=== PATIENT | male | born 1960 | race Caucasian/White ===

== ENCOUNTER 2017-04-03 16:51 | Inpatient (IN) | payer BC ==
[~2017-04-03] VITALS: Ht 190.5 cm; Wt 104.0 kg
[~2017-04-03 16:51] MED LIST: AEROSPAN8.9 GM IH; AMITRIPTYLINE100 MG PO; DAILY VITE1 EAC1 PO; ELAVIL10 MG PO; FISH OIL 1,2001 EAC4 PO; IRON18 MG PO; IRON325 M1 PO; MIRALAX17 GM PO; PERCOCET 5/31 TABLET PO; PRILOSEC OTC20 MG PO; PRILOSEC20 MG PO; PURELAX510 GM PO; SINGULAIR10 MG PO; SLO-NIACIN500 MG PO; STOOL SOFTENER100 M1 PO; TESSALON PERLE100 MG PO; TESSALON200 MG PO; TYLENOL PM1 CAPLET PO; ULTRAM50 MG PO; VENTOLIN HFA18 GM IH; VITAMIN D-3 401 EACH PO; VITAMIN E100 UNIT PO
[2017-04-03 19:28] LABS: HEMATOCRIT 43.1 % (38.0-50.0); MCH 33.4 PG (29.0-34.0); MCHC 35.5 G/DL (30.0-36.0); MCV 94.1 FL (86-99); MEAN PLAT.VOLUME 9.5 uM^3 (9.0-12.4); PLATELET COUNT 109 K/uL (156-360); RBC DIS.WIDTH-CV 15.4 % (11.8-14.6); RED BLOOD COUNT 4.58 M/uL (4.00-5.50); WHITE BLOOD COUNT 7.4 K/uL (4.1-10.2)
[2017-04-03 19:30] LABS: CHLORIDE 99 mEq/L (99-109); EOSINOPHIL (%) 0.4 % (0-5); IMMATURE GRANULOCYTE (%) 0.7 % (0.0-0.7); IMMATURE GRANULOCYTE COUNT 0.1 K/uL; INSTRUMENT ABS NEUTROPHIL CT 6.3 K/uL; LYMPHOCYTE COUNT 0.3 K/uL (1.0-2.8); MONOCYTE (%) 10.4 % (3-12); MONOCYTE COUNT 0.8 K/uL (0-0.8); NEUTROPHIL (%) 84.4 % (45-76); NEUTROPHIL COUNT 6.3 K/uL (1.8-6.4); POTASSIUM 4.3 mEq/L (3.7-5.4); SODIUM 135 mEq/L (136-147)
[2017-04-03 19:32] LABS: GLUCOSE 124 mg/dL (70-99)
[2017-04-03 19:34] LABS: ANION GAP 12 MEQ/L (2-14); TOTAL BILIRUBIN 1.3 mg/dL (0.0-1.0)
[2017-04-03 19:36] LABS: ALKALINE PHOSPHATASE 84 IU/L (3-129); GFR ESTIMATE (CALCULATED) > 59 mL/min/
[2017-04-03 19:37] LABS: UREA NITROGEN (BUN) 11 mg/dL (9-23)
[2017-04-03 20:45] LABS: ADD MIUA? NO; BILIRUBIN NEGATIVE; BLOOD NEGATIVE; COLOR YELLOW ((YELLOW)); GLUCOSE (STRIP) NEGATIVE; KETONES 5; LEUKOCYTES NEGATIVE; NITRITE NEGATIVE; PROTEIN (STRIP) NEGATIVE; SPECIFIC GRAVITY 1.016 (1.000-1.030); UCUL ADDED? NO; UROBILINOGEN 0.2 MG/DL (0.2-1.0)
[2017-04-03] MEDS ORDERED: CYANOCOBALAM1000 MCG PO (22:25)
[2017-04-03] MEDS ORDERED: CALCIUM 600 MG1 EACH PO (22:26)
[2017-04-03] MEDS ORDERED: DOCUSATE SODIU100 MG PO (22:26)
[2017-04-03] MEDS ORDERED: AMBIEN5 MG PO (22:27)
[2017-04-03] MEDS ORDERED: LISINOPRIL10 MG PO (22:28)
[2017-04-03] MEDS ORDERED: ZOFRAN4 MG PO (22:28)
[2017-04-03] MEDS ORDERED: PROTONIX40 MG PO (22:28)
[2017-04-03] MEDS ORDERED: MAALOX ADVANCE355 ML PO (22:31)
[2017-04-03] MEDS ORDERED: CAPECITABINE500 MG PO (22:32)
[2017-04-03] MEDS ORDERED: SUCRALFATE1 GM PO (22:32)
[2017-04-03] MEDS ORDERED: FLUCONAZOLE200 MG PO (22:33)
[2017-04-04 02:17] VITALS: BP 161/90
[2017-04-04 07:08] VITALS: BP 116/77
[2017-04-04 11:13] VITALS: BP 136/88
[2017-04-04 14:56] VITALS: BP 140/97
[2017-04-04 15:52] LABS: C DIFF TOXIN NEGATIVE (NEGATIVE)
[2017-04-04 15:55] LABS: PROBE CHECK PASS; SPECIMEN PROCESSING CONTROL PASS
[2017-04-04 19:21] VITALS: BP 130/90
[2017-04-05 00:25] VITALS: BP 139/87
[2017-04-05 03:45] VITALS: BP 128/87
[2017-04-05 07:11] VITALS: BP 110/66
[2017-04-05 07:46] LABS: ANION GAP 6 MEQ/L (2-14); CHLORIDE 104 MEQ/L (99-109); GFR ESTIMATE (CALCULATED) > 59 mL/min/; POTASSIUM 4.3 MEQ/L (3.7-5.4); SAMPLE HEMOLYSIS CHECK 0; SAMPLE ICTERIC CHECK 0; SAMPLE LIPEMIA CHECK 0; SODIUM 137 MEQ/L (136-147); UREA NITROGEN (BUN) 12 mg/dL (9-23)
[2017-04-05 07:50] LABS: GLUCOSE 89 mg/dL (70-99)
[2017-04-05 07:55] LABS: EOSINOPHIL (%) 1.6 % (0-5); EOSINOPHIL COUNT 0.1 K/uL (0-0.3); HEMATOCRIT 33.5 % (38.0-50.0); IMMATURE GRANULOCYTE (%) 0.3 % (0.0-0.7); INSTRUMENT ABS NEUTROPHIL CT 2.2 K/uL; LYMPHOCYTE COUNT 0.4 K/uL (1.0-2.8); MCH 33.4 PG (29.0-34.0); MCHC 34.6 G/DL (30.0-36.0); MCV 96.5 FL (86-99); MONOCYTE (%) 16.5 % (3-12); MONOCYTE COUNT 0.5 K/uL (0-0.8); NEUTROPHIL (%) 69.3 % (45-76); NEUTROPHIL COUNT 2.2 K/uL (1.8-6.4); RBC DIS.WIDTH-CV 15.2 % (11.8-14.6); RBC DIS.WIDTH-SD 53.2 % (39-53)
[2017-04-05 07:59] LABS: RED BLOOD COUNT 3.47 M/uL (4.00-5.50); WHITE BLOOD COUNT 3.2 K/uL (4.1-10.2)
[2017-04-05 08:31] LABS: MEAN PLAT.VOLUME 9.7 uM^3 (9.0-12.4); PLAT.SUFFICIENCY DECREASED
[2017-04-05 09:07] LABS: PLATELET COUNT 66 K/uL (156-360)
[2017-04-05 11:20] VITALS: BP 122/77
[2017-04-05 15:30] VITALS: BP 151/94
[2017-04-05 19:45] VITALS: BP 140/92
[2017-04-06 03:57] VITALS: BP 149/88
[2017-04-06 07:36] VITALS: BP 158/101
[2017-04-06 10:32] LABS: EOSINOPHIL (%) 1.6 % (0-5); EOSINOPHIL COUNT 0.1 K/uL (0-0.3); HEMATOCRIT 33.5 % (38.0-50.0); IMMATURE GRANULOCYTE (%) 1.1 % (0.0-0.7); INSTRUMENT ABS NEUTROPHIL CT 2.8 K/uL; LYMPHOCYTE COUNT 0.4 K/uL (1.0-2.8); MCH 34.7 PG (29.0-34.0); MCHC 35.8 G/DL (30.0-36.0); MCV 96.8 FL (86-99); MEAN PLAT.VOLUME 9.7 uM^3 (9.0-12.4); MONOCYTE (%) 13.2 % (3-12); MONOCYTE COUNT 0.5 K/uL (0-0.8); NEUTROPHIL (%) 74.4 % (45-76); NEUTROPHIL COUNT 2.8 K/uL (1.8-6.4); PLATELET COUNT 72 K/uL (156-360); RBC DIS.WIDTH-CV 15.4 % (11.8-14.6); RBC DIS.WIDTH-SD 54.1 % (39-53); RED BLOOD COUNT 3.46 M/uL (4.00-5.50); WHITE BLOOD COUNT 3.8 K/uL (4.1-10.2)
[2017-04-06 10:52] LABS: ALKALINE PHOSPHATASE 73 IU/L (3-129); ANION GAP 8 MEQ/L (2-14); CHLORIDE 103 MEQ/L (99-109); GFR ESTIMATE (CALCULATED) > 59 mL/min/; GLUCOSE 128 mg/dL (70-99); POTASSIUM 4.2 MEQ/L (3.7-5.4); SAMPLE HEMOLYSIS CHECK 0; SAMPLE ICTERIC CHECK 0; SAMPLE LIPEMIA CHECK 0; SODIUM 137 MEQ/L (136-147); TOTAL BILIRUBIN 0.6 MG/DL (0.0-1.0); UREA NITROGEN (BUN) 9 mg/dL (9-23)
[2017-04-06 11:26] LABS: Estimated Average Glucose 97 mg/dL (70-123)
[2017-04-06 12:00] VITALS: BP 142/94
[2017-04-06 15:25] VITALS: BP 128/75
[2017-04-06 19:31] VITALS: BP 155/92
[2017-04-06 23:11] VITALS: BP 151/87
[2017-04-07 03:46] VITALS: BP 143/89
[2017-04-07 07:03] VITALS: BP 129/81
[2017-04-07 11:47] VITALS: BP 141/91
[2017-04-07 15:06] VITALS: BP 137/79
[2017-04-07 22:23] VITALS: BP 154/89
[2017-04-08 10:05] VITALS: BP 143/92
[2017-04-08 22:16] VITALS: BP 138/98
[2017-04-09 07:33] VITALS: BP 147/85
[2017-04-09 12:30] VITALS: BP 154/96
[2017-04-09 15:43] VITALS: BP 158/92
[2017-04-09 22:27] VITALS: BP 148/98
[2017-04-10 07:30] VITALS: BP 133/86
[2017-04-10] MEDS ORDERED: PRINIVIL20 MG PO ×2 (14:01→14:08)
[2017-04-10] MEDS ORDERED: CORTENEMA PR (14:03)
[2017-04-10] MEDS ORDERED: TORADOL10 MG PO (14:06)
[2017-04-10] MEDS ORDERED: FENTANYL1 EAC1 TD (14:06)
== END 2017-04-10 14:56 | disposition home or self-care (01) | DRG 389 ==
LOC: EME 16:51 → EDOF 04-04 00:30 → 5EAST 04-04 00:30
PROVIDERS: Family Medicine; Hospitalist; Physician Assistant
DX: K56.60 Unspecified intestinal obstruction (principal); K52.9 Noninfective gastroenteritis and colitis, unspecified; C18.9 Malignant neoplasm of colon, unspecified; C78.7 Secondary malignant neoplasm of liver and intrahepatic bile duct; D69.59 Other secondary thrombocytopenia; T45.1X5A Adverse effect of antineoplastic and immunosuppressive drugs, initial encounter; Z87.891 Personal history of nicotine dependence; I10 Essential (primary) hypertension
CPT/HCPCS: 74000; 74177; 80048; 80053; 81003; 83036; 83690; 85025; 85027; 87493; G0378; J0744; J1650; J1885; J2270; J2405; J2765; J3010; J7030; S0028; S0030

== ENCOUNTER 2017-06-17 06:21 | Inpatient (IN) | payer BC ==
[~2017-06-17] VITALS: Ht 190.5 cm; Wt 101.6 kg
[~2017-06-17 06:21] MED LIST changes: +AMBIEN5 MG PO; +CALCIUM 600 MG1 EACH PO; +CAPECITABINE500 MG PO; +CORTENEMA PR; +CYANOCOBALAM1000 MCG PO; +DOCUSATE SODIU100 MG PO; +FENTANYL1 EAC1 TD; +FLUCONAZOLE200 MG PO; +LISINOPRIL10 MG PO; +MAALOX ADVANCE355 ML PO; +PRINIVIL20 MG PO; +PROTONIX40 MG PO; +SUCRALFATE1 GM PO; +TORADOL10 MG PO; +ZOFRAN4 MG PO
[2017-06-17 07:27] LABS: HEMATOCRIT 41.9 % (38.0-50.0); MCH 31.9 PG (29.0-34.0); MCHC 33.9 G/DL (30.0-36.0); MCV 94.2 FL (86-99); MEAN PLAT.VOLUME 9.9 uM^3 (9.0-12.4); PLATELET COUNT 79 K/uL (156-360); RBC DIS.WIDTH-CV 14.9 % (11.8-14.6); RBC DIS.WIDTH-SD 51.3 % (39-53); RED BLOOD COUNT 4.45 M/uL (4.00-5.50); WHITE BLOOD COUNT 4.3 K/uL (4.1-10.2)
[2017-06-17 07:53] LABS: ALKALINE PHOSPHATASE 143 IU/L (3-129); ANION GAP 7 MEQ/L (2-14); CHLORIDE 102 MEQ/L (99-109); GFR ESTIMATE (CALCULATED) > 59 mL/min/; GLUCOSE 159 mg/dL (70-99); POTASSIUM 3.9 MEQ/L (3.7-5.4); SAMPLE HEMOLYSIS CHECK 0; SAMPLE ICTERIC CHECK 0; SAMPLE LIPEMIA CHECK 0; SODIUM 135 MEQ/L (136-147); TOTAL BILIRUBIN 1.5 MG/DL (0.0-1.0); UREA NITROGEN (BUN) 11 mg/dL (9-23)
[2017-06-17 10:36] LABS: ADD MIUA? NO; BILIRUBIN NEGATIVE; BLOOD NEGATIVE; COLOR YELLOW ((YELLOW)); GLUCOSE (STRIP) NEGATIVE; KETONES 20; LEUKOCYTES NEGATIVE; NITRITE NEGATIVE; PROTEIN (STRIP) NEGATIVE; UCUL ADDED? NO; UROBILINOGEN 0.2 MG/DL (0.2-1.0)
[2017-06-17 10:52] LABS: SPECIFIC GRAVITY 1.097 (1.000-1.030)
[2017-06-17] MEDS ORDERED: COMPAZINE10 MG PO (13:10)
[2017-06-17 13:12] VITALS: BP 174/108
[2017-06-17] MEDS ORDERED: CALCIUM-MAGNES1 EAC8 PO (13:12)
[2017-06-17] MEDS ORDERED: CARAFATE100 MG/ML PO (13:15)
[2017-06-17] MEDS ORDERED: DURAGESIC50 MCG TD (13:17)
[2017-06-17 13:18] LABS: LIPASE 8 U/L (1.0-51.0)
[2017-06-17] MEDS ORDERED: ZESTRIL40 MG PO (13:18)
[2017-06-17] MEDS ORDERED: BENTYL20 MG PO (13:19)
[2017-06-17] MEDS ORDERED: DULCOLAX5 MG PO (13:19)
[2017-06-17] MEDS ORDERED: REMERON15 M2 PO (13:19)
[2017-06-17] MEDS ORDERED: AVASTIN400 MG/16 IV (13:20)
[2017-06-17 16:09] VITALS: BP 145/83
[2017-06-18] VITALS (7 sets, daily range): BP systolic 109–139; BP diastolic 72–93
[2017-06-18 06:22] LABS: EOSINOPHIL (%) 0.1 % (0-5); HEMATOCRIT 38.3 % (38.0-50.0); IMMATURE GRANULOCYTE (%) 0.6 % (0.0-0.7); INSTRUMENT ABS NEUTROPHIL CT 6.1 K/uL; LYMPHOCYTE COUNT 0.4 K/uL (1.0-2.8); MCH 32.8 PG (29.0-34.0); MCHC 34.7 G/DL (30.0-36.0); MCV 94.3 FL (86-99); MEAN PLAT.VOLUME 10.5 uM^3 (9.0-12.4); MONOCYTE (%) 8.1 % (3-12); MONOCYTE COUNT 0.6 K/uL (0-0.8); NEUTROPHIL (%) 85.3 % (45-76); NEUTROPHIL COUNT 6.1 K/uL (1.8-6.4); PLATELET COUNT 99 K/uL (156-360); RBC DIS.WIDTH-CV 15.3 % (11.8-14.6); RBC DIS.WIDTH-SD 52.8 % (39-53); RED BLOOD COUNT 4.06 M/uL (4.00-5.50); WHITE BLOOD COUNT 7.1 K/uL (4.1-10.2)
[2017-06-18 06:46] LABS: ALKALINE PHOSPHATASE 111 IU/L (3-129); ANION GAP 5 MEQ/L (2-14); CHLORIDE 105 MEQ/L (99-109); GFR ESTIMATE (CALCULATED) > 59 mL/min/; GLUCOSE 137 mg/dL (70-99); POTASSIUM 3.9 MEQ/L (3.7-5.4); SAMPLE HEMOLYSIS CHECK 0; SAMPLE ICTERIC CHECK 0; SAMPLE LIPEMIA CHECK 0; SODIUM 139 MEQ/L (136-147); UREA NITROGEN (BUN) 11 mg/dL (9-23)
[2017-06-18 06:47] LABS: TOTAL BILIRUBIN 1.1 MG/DL (0.0-1.0)
[2017-06-19 02:35] VITALS: BP 108/72
[2017-06-19 07:21] LABS: HEMATOCRIT 34.6 % (38.0-50.0); INSTRUMENT ABS NEUTROPHIL CT 1.2 K/uL; LYMPHOCYTE COUNT 0.5 K/uL (1.0-2.8); MCH 31.8 PG (29.0-34.0); MCHC 32.9 G/DL (30.0-36.0); MCV 96.4 FL (86-99); MONOCYTE (%) 11.1 % (3-12); MONOCYTE COUNT 0.2 K/uL (0-0.8); NEUTROPHIL (%) 61.8 % (45-76); NEUTROPHIL COUNT 1.2 K/uL (1.8-6.4); RBC DIS.WIDTH-CV 15.1 % (11.8-14.6); RED BLOOD COUNT 3.59 M/uL (4.00-5.50)
[2017-06-19 07:44] VITALS: BP 108/68
[2017-06-19 08:23] LABS: MEAN PLAT.VOLUME 9.7 uM^3 (9.0-12.4); PLAT.SUFFICIENCY DECREASED; PLATELET COUNT 55 K/uL (156-360)
[2017-06-19 08:26] LABS: ANION GAP 8 MEQ/L (2-14); CHLORIDE 104 MEQ/L (99-109); GFR ESTIMATE (CALCULATED) > 59 mL/min/; GLUCOSE 83 mg/dL (70-99); POTASSIUM 4.2 MEQ/L (3.7-5.4); SAMPLE HEMOLYSIS CHECK 0; SAMPLE ICTERIC CHECK 0; SAMPLE LIPEMIA CHECK 0; SODIUM 139 MEQ/L (136-147); UREA NITROGEN (BUN) 12 mg/dL (9-23)
[2017-06-19 12:42] VITALS: BP 127/82
[2017-06-19 20:05] VITALS: BP 139/80
[2017-06-19 23:55] VITALS: BP 124/78
[2017-06-20 03:25] VITALS: BP 120/80
[2017-06-20 07:25] VITALS: BP 125/78
[2017-06-20 16:18] VITALS: BP 131/83
[2017-06-21 02:44] VITALS: BP 118/66
[2017-06-21 03:40] VITALS: BP 128/75
[2017-06-21 07:12] LABS: EOSINOPHIL (%) 1.6 % (0-5); HEMATOCRIT 34.4 % (38.0-50.0); IMMATURE GRANULOCYTE (%) 0.8 % (0.0-0.7); INSTRUMENT ABS NEUTROPHIL CT 1.7 K/uL; LYMPHOCYTE COUNT 0.4 K/uL (1.0-2.8); MCH 32.7 PG (29.0-34.0); MCHC 34.6 G/DL (30.0-36.0); MCV 94.5 FL (86-99); MEAN PLAT.VOLUME 10.6 uM^3 (9.0-12.4); MONOCYTE (%) 12.7 % (3-12); MONOCYTE COUNT 0.3 K/uL (0-0.8); NEUTROPHIL (%) 68.5 % (45-76); NEUTROPHIL COUNT 1.7 K/uL (1.8-6.4); PLATELET COUNT 57 K/uL (156-360); RBC DIS.WIDTH-CV 15.4 % (11.8-14.6); RBC DIS.WIDTH-SD 52.5 % (39-53); RED BLOOD COUNT 3.64 M/uL (4.00-5.50); WHITE BLOOD COUNT 2.4 K/uL (4.1-10.2)
[2017-06-21 07:36] LABS: ANION GAP 7 MEQ/L (2-14); CHLORIDE 105 MEQ/L (99-109); GFR ESTIMATE (CALCULATED) > 59 mL/min/; GLUCOSE 88 mg/dL (70-99); POTASSIUM 4.8 MEQ/L (3.7-5.4); SAMPLE HEMOLYSIS CHECK 0; SAMPLE ICTERIC CHECK 0; SAMPLE LIPEMIA CHECK 0; SODIUM 142 MEQ/L (136-147); UREA NITROGEN (BUN) 6 mg/dL (9-23)
[2017-06-21 07:46] VITALS: BP 119/75
[2017-06-21 11:23] VITALS: BP 129/84
[2017-06-21 16:18] VITALS: BP 126/79
[2017-06-21 20:51] VITALS: BP 132/81
[2017-06-22 00:09] VITALS: BP 141/73
[2017-06-22 06:38] LABS: EOSINOPHIL (%) 0.6 % (0-5); EOSINOPHIL COUNT 0.1 K/uL (0-0.3); HEMATOCRIT 39.8 % (38.0-50.0); IMMATURE GRANULOCYTE (%) 3.9 % (0.0-0.7); IMMATURE GRANULOCYTE COUNT 0.8 K/uL; INSTRUMENT ABS NEUTROPHIL CT 17.1 K/uL; LYMPHOCYTE COUNT 0.7 K/uL (1.0-2.8); MCH 32.6 PG (29.0-34.0); MCHC 34.7 G/DL (30.0-36.0); MCV 94.1 FL (86-99); MEAN PLAT.VOLUME 9.8 uM^3 (9.0-12.4); MONOCYTE (%) 4.7 % (3-12); MONOCYTE COUNT 0.9 K/uL (0-0.8); NEUTROPHIL (%) 87.3 % (45-76); NEUTROPHIL COUNT 17.1 K/uL (1.8-6.4); PLATELET COUNT 72 K/uL (156-360); RBC DIS.WIDTH-CV 15.8 % (11.8-14.6); RBC DIS.WIDTH-SD 53.9 % (39-53); RED BLOOD COUNT 4.23 M/uL (4.00-5.50); WHITE BLOOD COUNT 19.6 K/uL (4.1-10.2)
[2017-06-22 07:13] LABS: ANION GAP 8 MEQ/L (2-14); CHLORIDE 103 MEQ/L (99-109); GFR ESTIMATE (CALCULATED) > 59 mL/min/; GLUCOSE 84 mg/dL (70-99); POTASSIUM 3.9 MEQ/L (3.7-5.4); SAMPLE HEMOLYSIS CHECK 0; SAMPLE ICTERIC CHECK 0; SAMPLE LIPEMIA CHECK 0; SODIUM 140 MEQ/L (136-147); UREA NITROGEN (BUN) 5 mg/dL (9-23)
[2017-06-22 07:44] VITALS: BP 140/88
[2017-06-22 20:49] VITALS: BP 127/80
[2017-06-23 00:59] VITALS: BP 112/65
[2017-06-23 05:53] VITALS: BP 129/80
[2017-06-23 07:45] VITALS: BP 126/82
[2017-06-23 16:04] VITALS: BP 124/80
[2017-06-23 23:38] VITALS: BP 131/80
[2017-06-24 06:29] LABS: EOSINOPHIL (%) 1.1 % (0-5); EOSINOPHIL COUNT 0.1 K/uL (0-0.3); HEMATOCRIT 35.8 % (38.0-50.0); IMMATURE GRANULOCYTE (%) 2.3 % (0.0-0.7); IMMATURE GRANULOCYTE COUNT 0.2 K/uL; INSTRUMENT ABS NEUTROPHIL CT 7.3 K/uL; LYMPHOCYTE COUNT 0.7 K/uL (1.0-2.8); MCH 33.4 PG (29.0-34.0); MCHC 34.9 G/DL (30.0-36.0); MCV 95.7 FL (86-99); MEAN PLAT.VOLUME 10.5 uM^3 (9.0-12.4); MONOCYTE (%) 9.3 % (3-12); MONOCYTE COUNT 0.9 K/uL (0-0.8); NEUTROPHIL COUNT 7.3 K/uL (1.8-6.4); PLATELET COUNT 55 K/uL (156-360); RBC DIS.WIDTH-CV 15.9 % (11.8-14.6); RBC DIS.WIDTH-SD 55.5 % (39-53); RED BLOOD COUNT 3.74 M/uL (4.00-5.50); WHITE BLOOD COUNT 9.2 K/uL (4.1-10.2)
[2017-06-24 07:34] LABS: ANION GAP 6 MEQ/L (2-14); CHLORIDE 104 MEQ/L (99-109); GFR ESTIMATE (CALCULATED) > 59 mL/min/; GLUCOSE 88 mg/dL (70-99); POTASSIUM 4.4 MEQ/L (3.7-5.4); SAMPLE HEMOLYSIS CHECK 0; SAMPLE ICTERIC CHECK 0; SAMPLE LIPEMIA CHECK 0; SODIUM 141 MEQ/L (136-147); UREA NITROGEN (BUN) 4 mg/dL (9-23)
[2017-06-24 08:00] VITALS: BP 121/77; BP 131/86
[2017-06-24 15:13] VITALS: BP 122/77
[2017-06-24 20:16] VITALS: BP 124/77
[2017-06-24 23:27] VITALS: BP 123/84
[2017-06-25 03:03] VITALS: BP 113/69
[2017-06-25 09:03] VITALS: BP 125/81
[2017-06-25 15:45] VITALS: BP 138/87
[2017-06-26 00:03] VITALS: BP 135/88
[2017-06-26 07:49] VITALS: BP 122/79
[2017-06-26 16:24] VITALS: BP 117/69
[2017-06-27 00:26] VITALS: BP 117/70
[2017-06-27 06:29] LABS: HEMATOCRIT 38.5 % (38.0-50.0); MCH 31.3 PG (29.0-34.0); MCHC 33.2 G/DL (30.0-36.0); MCV 94.1 FL (86-99); MEAN PLAT.VOLUME 10.8 uM^3 (9.0-12.4); PLATELET COUNT 58 K/uL (156-360); RBC DIS.WIDTH-CV 15.3 % (11.8-14.6); RBC DIS.WIDTH-SD 52.5 % (39-53); RED BLOOD COUNT 4.09 M/uL (4.00-5.50); WHITE BLOOD COUNT 4.5 K/uL (4.1-10.2)
[2017-06-27 07:00] LABS: ANION GAP 7 MEQ/L (2-14); CHLORIDE 103 MEQ/L (99-109); GFR ESTIMATE (CALCULATED) > 59 mL/min/; GLUCOSE 89 mg/dL (70-99); POTASSIUM 4.5 MEQ/L (3.7-5.4); SAMPLE HEMOLYSIS CHECK 0; SAMPLE ICTERIC CHECK 0; SAMPLE LIPEMIA CHECK 0; SODIUM 139 MEQ/L (136-147); UREA NITROGEN (BUN) 8 mg/dL (9-23)
[2017-06-27 07:14] LABS: ABS NEUTROPHIL COUNT 2.8; ANISOCYTOSIS 1+; ATYPICAL LYMPHOCYTE 0.9 %; BAND NEUTROPHILS 11.5 % (0-8.0); EOSINOPHIL ABS CT 0; EOSINOPHILS 0.9 % (0-5.0); INSTRUMENT ABS NEUTROPHIL CT 2.7 K/uL; LYMPHOCYTES 11.5 % (15.0-45.0); MACROCYTES 1+; MYELOCYTES 5.3 %; PLAT.SUFFICIENCY DECREASED; SEG.NEUTROPHILS 50.4 % (46.0-76.0)
[2017-06-27 07:37] VITALS: BP 107/67
[2017-06-27] MEDS ORDERED: DURAGESIC50 MCG TD (15:06)
[2017-06-27] MEDS ORDERED: DOCUSATE SODIU100 MG PO (15:07)
[2017-06-27] MEDS ORDERED: Chronulac,Cephulac,E PO ×2 (15:11→17:28)
[2017-06-27] MEDS ORDERED: HYDROMORPHONE HC4 MG PO (16:03)
[2017-06-27] MEDS ORDERED: KRISTALOSE10 GM PO (17:28)
== END 2017-06-27 17:27 | disposition home or self-care (01) | DRG 389 ==
LOC: EME 06:21 → EDOF 12:02 → 5EAST 12:02 → ENRESERV 12:03 → EDOF 12:30 → 5EAST 13:03
PROVIDERS: Family Medicine; Family Medicine Sports Medicine; Internal Medicine Hematology & Oncology
PROC: 0D7N8DZ Dilation of Sigmoid Colon with Intraluminal Device, Via Natural or Artificial Opening Endoscopic (ICD-10-PCS; principal; 2017-06-19)
DX: K56.60 Unspecified intestinal obstruction (principal); D69.59 Other secondary thrombocytopenia; T45.1X5A Adverse effect of antineoplastic and immunosuppressive drugs, initial encounter; I10 Essential (primary) hypertension; K52.9 Noninfective gastroenteritis and colitis, unspecified; C78.00 Secondary malignant neoplasm of unspecified lung; C78.7 Secondary malignant neoplasm of liver and intrahepatic bile duct; C18.9 Malignant neoplasm of colon, unspecified; D61.818 Other pancytopenia; C34.90 Malignant neoplasm of unspecified part of unspecified bronchus or lung; J44.9 Chronic obstructive pulmonary disease, unspecified; G89.3 Neoplasm related pain (acute) (chronic); K64.9 Unspecified hemorrhoids; K21.9 Gastro-esophageal reflux disease without esophagitis; K58.9 Irritable bowel syndrome, unspecified; Z92.3 Personal history of irradiation; Z93.3 Colostomy status; Z87.442 Personal history of urinary calculi; Z85.048 Personal history of other malignant neoplasm of rectum, rectosigmoid junction, and anus; Z72.0 Tobacco use; Z79.899 Other long term (current) drug therapy; Z80.3 Family history of malignant neoplasm of breast; Z82.49 Family history of ischemic heart disease and other diseases of the circulatory system
CPT/HCPCS: 74000; 74177; 74270; 76000; 80048; 80053; 81003; 83690; 85025; 85027; 88305; 94640; 99202; 99281; 99285; C1876; J1170; J1447; J2270; J2405; J3010; J7030; J7050; J7120

== ENCOUNTER 2017-08-02 11:39 | Emergency (ER) | payer BC ==
[~2017-08-02] VITALS: Ht 190.5 cm; Wt 96.5 kg
[~2017-08-02 11:39] MED LIST changes: +AVASTIN400 MG/16 IV; +BENTYL20 MG PO; +CALCIUM-MAGNES1 EAC8 PO; +CARAFATE100 MG/ML PO; +COMPAZINE10 MG PO; +Chronulac,Cephulac,E PO; +DULCOLAX5 MG PO; +DURAGESIC50 MCG TD; +HYDROMORPHONE HC4 MG PO; +KRISTALOSE10 GM PO; +REMERON15 M2 PO; +ZESTRIL40 MG PO
[2017-08-02 13:29] LABS: EOSINOPHIL (%) 0.5 % (0-5); HEMATOCRIT 31.6 % (38.0-50.0); IMMATURE GRANULOCYTE (%) 0.5 % (0.0-0.7); INSTRUMENT ABS NEUTROPHIL CT 1.5 K/uL; LYMPHOCYTE COUNT 0.2 K/uL (1.0-2.8); MCH 29.3 PG (29.0-34.0); MCHC 32.6 G/DL (30.0-36.0); MCV 89.8 FL (86-99); MONOCYTE COUNT 0.3 K/uL (0-0.8); NEUTROPHIL (%) 73.9 % (45-76); NEUTROPHIL COUNT 1.5 K/uL (1.8-6.4); RBC DIS.WIDTH-CV 14.6 % (11.8-14.6); RBC DIS.WIDTH-SD 46.5 % (39-53); RED BLOOD COUNT 3.52 M/uL (4.00-5.50); WHITE BLOOD COUNT 2.1 K/uL (4.1-10.2)
[2017-08-02 13:39] LABS: CHLORIDE 105 mEq/L (99-109); POTASSIUM 4.9 mEq/L (3.7-5.4); SODIUM 138 mEq/L (136-147)
[2017-08-02 13:42] LABS: GLUCOSE 113 mg/dL (70-99)
[2017-08-02 13:43] LABS: ANION GAP 9 MEQ/L (2-14)
[2017-08-02 13:44] LABS: TOTAL BILIRUBIN 0.9 mg/dL (0.0-1.0)
[2017-08-02 13:45] LABS: ALKALINE PHOSPHATASE 149 IU/L (3-129); GFR ESTIMATE (CALCULATED) > 59 mL/min/
[2017-08-02 13:46] LABS: UREA NITROGEN (BUN) 8 mg/dL (9-23)
[2017-08-02 14:11] LABS: IMM.PLATELET FRACTION 2.9 (1-7); PLAT.SUFFICIENCY DECREASED
[2017-08-02 14:23] LABS: PLATELET COUNT 47 K/uL (156-360)
[2017-08-02 19:20] VITALS: BP 134/83
[2017-08-02 19:25] VITALS: BP 134/83
[2017-08-02 20:01] VITALS: BP 134/83
[2017-08-03] VITALS: BP 114/67
[2017-08-03 07:35] VITALS: BP 116/65
[2017-08-03 09:41] VITALS: BP 110/64
== END 2017-08-03 11:21 | disposition home or self-care (01) ==
LOC: EME 11:39 → ENRESERV 17:25 → 2SOUTH 17:28 → 2EAST 17:28 → ENRESERV 18:12 → 2EAST 19:13
PROVIDERS: Emergency Medicine
PROC: 0DCN8ZZ Extirpation of Matter from Sigmoid Colon, Via Natural or Artificial Opening Endoscopic (ICD-10-PCS; principal; 2017-08-03)
DX: K91.89 Other postprocedural complications and disorders of digestive system (principal); T18.5XXA Foreign body in anus and rectum, initial encounter; Y73.8 Miscellaneous gastroenterology and urology devices associated with adverse incidents, not elsewhere classified; Y83.8 Other surgical procedures as the cause of abnormal reaction of the patient, or of later complication, without mention of misadventure at the time of the procedure; C18.9 Malignant neoplasm of colon, unspecified; C78.7 Secondary malignant neoplasm of liver and intrahepatic bile duct; Z87.442 Personal history of urinary calculi; K21.9 Gastro-esophageal reflux disease without esophagitis; I10 Essential (primary) hypertension; J45.909 Unspecified asthma, uncomplicated; Z88.8 Allergy status to other drugs, medicaments and biological substances; Z87.891 Personal history of nicotine dependence
CPT/HCPCS: 74000; 80053; 85025; 99281; 99285; G0378; J1170; J2250; J2270; J3010; J7030; J7040

== ENCOUNTER → 2017-11-22 | Outpatient (CLI) | payer BC ==
[~2017-11-22] MED LIST changes: +ALDACTONE50 MG PO; +DECADRON4 MG PO; +DIFLUCAN200 MG PO; +DRONABINOL5 MG PO; +LASIX40 MG PO; +NEURONTIN300 MG PO
[2017-11-22 14:52] LABS: TYPE OF FLUID PARACENTESIS
[2017-11-22 15:22] LABS: APPEARANCE SL. HAZY-YELLOW; BODY FLUID RBC'S 1000 /MM^3 (0-100); BODY FLUID WBC'S 95 /MM^3 (0-500)
[2017-11-22 15:54] LABS: BODY FLUID AMYLASE < 10 U/L; BODY FLUID PROTEIN < 3.0 G/DL
[2017-11-22 16:22] LABS: BODY FLUID EOSINOPHILS 0 % (0-25); MONONUCLEAR WBC'S 70 %; POLYNUCLEAR WBC'S 30 % (0-25)
== END | disposition home or self-care (01) ==
LOC: RAD 12:57
PROVIDERS: Internal Medicine Gastroenterology
PROC: 0W9G3ZZ Drainage of Peritoneal Cavity, Percutaneous Approach (ICD-10-PCS; principal; 2017-11-22)
DX: R18.8 Other ascites (principal)
CPT/HCPCS: 49083; 82150 91; 84157; 88108; 89051; P9047

== ENCOUNTER → 2017-11-26 | Outpatient (CLI) | payer BC | END | disposition home or self-care (01) | LOC: RAD 12:21 | PROC: 0W9G3ZZ Drainage of Peritoneal Cavity, Percutaneous Approach (ICD-10-PCS; principal; 2017-11-26) | DX: R18.8 Other ascites (principal) | CPT/HCPCS: 49083 ==

== ENCOUNTER → 2017-12-03 | Outpatient (CLI) | payer BC | END | disposition home or self-care (01) | LOC: RAD 12:31 | PROC: 0W9G3ZZ Drainage of Peritoneal Cavity, Percutaneous Approach (ICD-10-PCS; principal; 2017-12-03) | DX: R18.8 Other ascites (principal) | CPT/HCPCS: 49083 ==

== ENCOUNTER → 2017-12-12 | Outpatient (CLI) | payer BC | END | disposition home or self-care (01) | LOC: RAD 12:19 | PROC: 0W9G3ZZ Drainage of Peritoneal Cavity, Percutaneous Approach (ICD-10-PCS; principal; 2017-12-12) | DX: R18.8 Other ascites (principal) | CPT/HCPCS: 49083; P9047 ==

== ENCOUNTER → 2017-12-19 | Outpatient (CLI) | payer BC, OTHER | END | disposition home or self-care (01) | LOC: RAD 12:43 | PROC: 0W9G3ZZ Drainage of Peritoneal Cavity, Percutaneous Approach (ICD-10-PCS; principal; 2017-12-19) | DX: R18.8 Other ascites (principal) | CPT/HCPCS: 49083 ==

== ENCOUNTER → 2017-12-26 | Outpatient (CLI) | payer OTHER, BC ==
[~2017-12-26] MED LIST changes: +XIFAXAN550 MG PO
== END | disposition home or self-care (01) ==
LOC: RAD 12-21 08:30
PROC: 0W9G3ZZ Drainage of Peritoneal Cavity, Percutaneous Approach (ICD-10-PCS; principal; 2017-12-26)
DX: R18.8 Other ascites (principal)
CPT/HCPCS: 49083

== ENCOUNTER → 2018-01-02 | Outpatient (CLI) | payer BC, OTHER | END | disposition home or self-care (01) | LOC: RAD 08:05 | PROC: 0W9G3ZZ Drainage of Peritoneal Cavity, Percutaneous Approach (ICD-10-PCS; principal; 2018-01-02) | DX: R18.8 Other ascites (principal) | CPT/HCPCS: 49083 ==

== ENCOUNTER → 2018-01-09 | Outpatient (CLI) | payer BC, OTHER | END | disposition home or self-care (01) | LOC: RAD 12:40 | PROC: 0W9G3ZZ Drainage of Peritoneal Cavity, Percutaneous Approach (ICD-10-PCS; principal; 2018-01-09) | DX: R18.8 Other ascites (principal) | CPT/HCPCS: 49083 ==

== ENCOUNTER → 2018-01-15 | Outpatient (CLI) | payer BC, OTHER | END | disposition home or self-care (01) | LOC: RAD 08:05 | PROC: 0W9G3ZZ Drainage of Peritoneal Cavity, Percutaneous Approach (ICD-10-PCS; principal; 2018-01-15) | DX: R18.8 Other ascites (principal) | CPT/HCPCS: 49083 ==

== ENCOUNTER → 2018-01-21 | Outpatient (CLI) | payer BC, OTHER | END | disposition home or self-care (01) | LOC: RAD 12:36 | PROC: 0W9G3ZZ Drainage of Peritoneal Cavity, Percutaneous Approach (ICD-10-PCS; principal; 2018-01-21) | DX: R18.8 Other ascites (principal) | CPT/HCPCS: 49083 ==

== ENCOUNTER 2018-01-24 12:53 | Day surgery (SDC) | payer BC, OTHER ==
[~2018-01-24] VITALS: Ht 190.5 cm; Wt 95.3 kg
== END 2018-01-24 16:20 | disposition home or self-care (01) ==
LOC: PAIN 12:53 → SDC 13:45 → PAIN 16:20
DX: G89.3 Neoplasm related pain (acute) (chronic) (principal); K62.89 Other specified diseases of anus and rectum; C18.9 Malignant neoplasm of colon, unspecified; C78.7 Secondary malignant neoplasm of liver and intrahepatic bile duct; I10 Essential (primary) hypertension; J45.909 Unspecified asthma, uncomplicated; R94.31 Abnormal electrocardiogram [ECG] [EKG]; Z87.891 Personal history of nicotine dependence
CPT/HCPCS: J1030; J2250; J3010; S0020

== ENCOUNTER 2018-02-18 13:35 | Day surgery (SDC) | payer OTHER, BC ==
[2018-02-18] MEDS ORDERED: ALDACTONE50 MG PO (14:13)
[2018-02-18] MEDS ORDERED: LASIX20 MG PO (14:14)
== END 2018-02-18 16:45 | disposition home or self-care (01) ==
LOC: PAIN 13:35 → SDC 14:15 → PAIN 14:15
DX: G89.3 Neoplasm related pain (acute) (chronic) (principal); K62.89 Other specified diseases of anus and rectum; Z87.891 Personal history of nicotine dependence; C18.9 Malignant neoplasm of colon, unspecified; C78.7 Secondary malignant neoplasm of liver and intrahepatic bile duct; I10 Essential (primary) hypertension
CPT/HCPCS: J1100; J2250

== ENCOUNTER 2018-05-13 18:57 | Inpatient (IN) | payer BC ==
[~2018-05-13] VITALS: Ht 190.5 cm; Wt 86.5 kg
[~2018-05-13 18:57] MED LIST changes: -CYANOCOBALAM1000 MCG PO; +LASIX20 MG PO; +VITAMIN B-122000 MC1 PO
[2018-05-13 20:43] LABS: HEMATOCRIT 31.6 % (38.0-50.0); HEMOGLOBIN 10.6 G/DL (12.5-16.6); MCHC 33.5 G/DL (30.0-36.0); MCV 83.4 FL (86-99); PLATELET COUNT 55 K/uL (156-360); RBC DIS.WIDTH-CV 14.2 % (11.8-14.6); RBC DIS.WIDTH-SD 43.6 % (39-53); RED BLOOD COUNT 3.79 M/uL (4.00-5.50); WHITE BLOOD COUNT 4.3 K/uL (4.1-10.2)
[2018-05-13 20:55] LABS: ALBUMIN 3.5 g/dL (3.2-4.8); CHLORIDE 102 mEq/L (99-109); POTASSIUM 3.9 mEq/L (3.7-5.4); SODIUM 137 mEq/L (136-147)
[2018-05-13 20:57] LABS: GLUCOSE 118 mg/dL (70-99); TOTAL PROTEIN 6.4 g/dL (6.4-8.3)
[2018-05-13 20:59] LABS: TOTAL BILIRUBIN 1.3 mg/dL (0.0-1.0)
[2018-05-13 21:01] LABS: ALKALINE PHOSPHATASE 263 IU/L (3-129); CREATININE 0.8 mg/dL (0.6-1.3); GFR ESTIMATE (CALCULATED) > 59 mL/min/ (58.99-99999)
[2018-05-13 21:02] LABS: UREA NITROGEN (BUN) 9 mg/dL (9-23)
[2018-05-13 21:03] LABS: AST (GOT) 25 IU/L (2-34); DIRECT BILIRUBIN 0.8 mg/dL (0.0-0.3)
[2018-05-13 21:04] LABS: ALT (GPT) 18 IU/L (3-49); LIPASE 11 U/L (1.0-51.0)
[2018-05-13] MEDS ORDERED: albuterol sulfate (21:27)
[2018-05-13] MEDS ORDERED: ALBUTEROL SULFATE IH (21:27)
[2018-05-13] MEDS ORDERED: FENTANYL1 EAC3 TD (21:30)
[2018-05-13] MEDS ORDERED: BENTYL20 MG PO (21:32)
[2018-05-13] MEDS ORDERED: ZOFRAN8 MG PO (21:33)
[2018-05-13] MEDS ORDERED: CEPHALEXIN500 M1 PO (21:36)
[2018-05-14 07:29] VITALS: BP 113/67
[2018-05-14 08:24] LABS: APPEARANCE TURBID ((CLEAR)); BILIRUBIN NEGATIVE; BLOOD MODERATE; COLOR AMBER ((YELLOW)); GLUCOSE (STRIP) NEGATIVE; KETONES 5; LEUKOCYTES LARGE; NITRITE NEGATIVE; PROTEIN (STRIP) 100; SPECIFIC GRAVITY 1.011 (1.000-1.030)
[2018-05-14 08:51] LABS: BACTERIA 1+ /HPF; EPITHELIAL CELLS RARE /HPF; MUCUS NONE SEEN /LPF; RED BLOOD CELLS 20-30 /HPF (0-5); UCUL ADDED? YES; WHITE BLOOD CELLS TNTC /HPF (0-5)
[2018-05-14 16:11] VITALS: BP 121/71
[2018-05-15 00:23] VITALS: BP 98/60
[2018-05-15 06:36] LABS: BASOPHIL (%) 0 % (0-1); EOSINOPHIL (%) 1.8 % (0-5); EOSINOPHIL COUNT 0.1 K/uL (0-0.3); HEMATOCRIT 33.2 % (38.0-50.0); HEMOGLOBIN 10.6 G/DL (12.5-16.6); IMMATURE GRANULOCYTE (%) 0.6 % (0.0-0.7); LYMPHOCYTE (%) 6.9 % (15-42); LYMPHOCYTE COUNT 0.2 K/uL (1.0-2.8); MCHC 31.9 G/DL (30.0-36.0); MCV 84.7 FL (86-99); MONOCYTE (%) 12.6 % (3-12); MONOCYTE COUNT 0.4 K/uL (0-0.8); NEUTROPHIL (%) 78.1 % (45-76); NEUTROPHIL COUNT 2.6 K/uL (1.8-6.4); PLATELET COUNT 59 K/uL (156-360); RBC DIS.WIDTH-CV 14.4 % (11.8-14.6); RBC DIS.WIDTH-SD 44.3 % (39-53); RED BLOOD COUNT 3.92 M/uL (4.00-5.50); WHITE BLOOD COUNT 3.3 K/uL (4.1-10.2)
[2018-05-15 06:50] LABS: CHLORIDE 104 MEQ/L (99-109); CREATININE 0.7 MG/DL (0.6-1.3); GFR ESTIMATE (CALCULATED) > 59 mL/min/ (58.99-99999); GLUCOSE 96 mg/dL (70-99); POTASSIUM 4.5 MEQ/L (3.7-5.4); SODIUM 140 MEQ/L (136-147); UREA NITROGEN (BUN) 7 mg/dL (9-23)
[2018-05-15 07:28] VITALS: BP 103/53
[2018-05-15 16:21] VITALS: BP 110/72
[2018-05-15 20:10] LABS: HEMATOCRIT 29.5 % (38.0-50.0); HEMOGLOBIN 9.5 G/DL (12.5-16.6); MCH 27.4 PG (29.0-34.0); MCHC 32.2 G/DL (30.0-36.0); PLATELET COUNT 57 K/uL (156-360); RBC DIS.WIDTH-CV 14.2 % (11.8-14.6); RBC DIS.WIDTH-SD 44.4 % (39-53); RED BLOOD COUNT 3.47 M/uL (4.00-5.50); WHITE BLOOD COUNT 6.5 K/uL (4.1-10.2)
[2018-05-15 23:28] VITALS: BP 115/74
[2018-05-16 04:09] VITALS: BP 102/65
[2018-05-16 07:52] VITALS: BP 117/74
[2018-05-16] MEDS ORDERED: DILAUDID4 MG PO (09:53)
[2018-05-16 11:00] VITALS: BP 132/85
[2018-05-16 15:10] VITALS: BP 144/84
[2018-05-16 19:37] VITALS: BP 125/83
[2018-05-16 23:40] VITALS: BP 123/83
[2018-05-17] VITALS (13 sets, daily range): BP systolic 114–145; BP diastolic 64–87
[2018-05-17 11:49] LABS: BASOPHIL (%) 0.2 % (0-1); EOSINOPHIL (%) 0.7 % (0-5); HEMATOCRIT 23.4 % (38.0-50.0); HEMOGLOBIN 7.7 G/DL (12.5-16.6); IMMATURE GRANULOCYTE (%) 1.6 % (0.0-0.7); LYMPHOCYTE (%) 5.2 % (15-42); LYMPHOCYTE COUNT 0.2 K/uL (1.0-2.8); MCH 28.2 PG (29.0-34.0); MCHC 32.9 G/DL (30.0-36.0); MCV 85.7 FL (86-99); MONOCYTE (%) 7.7 % (3-12); MONOCYTE COUNT 0.3 K/uL (0-0.8); NEUTROPHIL (%) 84.6 % (45-76); NEUTROPHIL COUNT 3.6 K/uL (1.8-6.4); RBC DIS.WIDTH-CV 14.5 % (11.8-14.6); RBC DIS.WIDTH-SD 45.1 % (39-53); WHITE BLOOD COUNT 4.3 K/uL (4.1-10.2)
[2018-05-17 12:14] LABS: RED BLOOD COUNT 2.73 M/uL (4.00-5.50)
[2018-05-17 12:18] LABS: IMM.PLATELET FRACTION 1.9 (1-7); PLAT.SUFFICIENCY VERY DECREASED; PLATELET COUNT 45 K/uL (156-360)
[2018-05-17 14:23] LABS: ALBUMIN 3.3 G/DL (3.2-4.8); CHLORIDE 105 MEQ/L (99-109); POTASSIUM 4.4 MEQ/L (3.7-5.4); SODIUM 138 MEQ/L (136-147); TOTAL BILIRUBIN 1.2 MG/DL (0.0-1.0)
[2018-05-17 14:28] LABS: ALKALINE PHOSPHATASE 202 IU/L (3-129); ALT (GPT) 12 IU/L (3-49); AST (GOT) 20 IU/L (2-34); CREATININE 0.5 MG/DL (0.6-1.3); GFR ESTIMATE (CALCULATED) > 59 mL/min/ (58.99-99999); GLUCOSE 108 mg/dL (70-99); UREA NITROGEN (BUN) 9 mg/dL (9-23)
[2018-05-18 04:15] VITALS: BP 131/90
[2018-05-18 07:04] LABS: CHLORIDE 105 MEQ/L (99-109); CREATININE 0.5 MG/DL (0.6-1.3); GFR ESTIMATE (CALCULATED) > 59 mL/min/ (58.99-99999); GLUCOSE 108 mg/dL (70-99); SODIUM 139 MEQ/L (136-147); UREA NITROGEN (BUN) 8 mg/dL (9-23)
[2018-05-18 07:25] VITALS: BP 137/86
[2018-05-18 07:27] LABS: HEMATOCRIT 33.2 % (38.0-50.0); MCH 27.8 PG (29.0-34.0); MCHC 33.1 G/DL (30.0-36.0); MCV 83.8 FL (86-99); RBC DIS.WIDTH-CV 14.1 % (11.8-14.6); RBC DIS.WIDTH-SD 42.9 % (39-53); WHITE BLOOD COUNT 3.5 K/uL (4.1-10.2)
[2018-05-18 07:32] LABS: PLATELET COUNT 59 K/uL (156-360); RED BLOOD COUNT 3.96 M/uL (4.00-5.50)
[2018-05-18 16:12] VITALS: BP 127/87
[2018-05-18 23:26] VITALS: BP 121/83
[2018-05-19 07:20] VITALS: BP 115/79
[2018-05-19 15:18] VITALS: BP 110/74
[2018-05-20 00:32] VITALS: BP 128/74
[2018-05-20 06:47] LABS: BASOPHIL (%) 0.5 % (0-1); HEMATOCRIT 31.4 % (38.0-50.0); HEMOGLOBIN 10.3 G/DL (12.5-16.6); IMMATURE GRANULOCYTE (%) 1.2 % (0.0-0.7); LYMPHOCYTE (%) 5.5 % (15-42); LYMPHOCYTE COUNT 0.2 K/uL (1.0-2.8); MCH 27.7 PG (29.0-34.0); MCHC 32.8 G/DL (30.0-36.0); MCV 84.4 FL (86-99); MONOCYTE (%) 9.5 % (3-12); MONOCYTE COUNT 0.4 K/uL (0-0.8); NEUTROPHIL (%) 82.3 % (45-76); NEUTROPHIL COUNT 3.3 K/uL (1.8-6.4); RBC DIS.WIDTH-CV 14.6 % (11.8-14.6); RED BLOOD COUNT 3.72 M/uL (4.00-5.50)
[2018-05-20 07:17] LABS: ALBUMIN 2.8 G/DL (3.2-4.8); ALKALINE PHOSPHATASE 249 IU/L (3-129); CHLORIDE 111 MEQ/L (99-109); CREATININE 0.5 MG/DL (0.6-1.3); GFR ESTIMATE (CALCULATED) > 59 mL/min/ (58.99-99999); GLUCOSE 111 mg/dL (70-99); POTASSIUM 3.9 MEQ/L (3.7-5.4); SODIUM 143 MEQ/L (136-147); TOTAL BILIRUBIN 1.2 MG/DL (0.0-1.0); UREA NITROGEN (BUN) 8 mg/dL (9-23)
[2018-05-20 07:19] LABS: ALT (GPT) 23 IU/L (3-49); AST (GOT) 35 IU/L (2-34); IMM.PLATELET FRACTION 2.2 (1-7); PLAT.SUFFICIENCY DECREASED; PLATELET COUNT 47 K/uL (156-360)
[2018-05-20 07:25] VITALS: BP 119/82
[2018-05-20 10:21] LABS: FOLIC ACID (FOLATE) 14.4 NG/ML (5.0-22.0)
[2018-05-20 15:20] VITALS: BP 113/77
[2018-05-21 07:16] VITALS: BP 119/87
[2018-05-21 15:15] VITALS: BP 121/83
[2018-05-21 19:47] LABS: INTER. NORMALIZED RATIO 1.4
[2018-05-21 19:50] LABS: PTT 28.6 SEC (25-37)
[2018-05-21 22:42] VITALS: BP 119/79
[2018-05-22 06:45] VITALS: BP 124/82
[2018-05-22 11:10] VITALS: BP 106/67
[2018-05-22 11:48] LABS: BASOPHIL (%) 0.2 % (0-1); EOSINOPHIL (%) 1.4 % (0-5); EOSINOPHIL COUNT 0.1 K/uL (0-0.3); HEMATOCRIT 30.8 % (38.0-50.0); HEMOGLOBIN 10.1 G/DL (12.5-16.6); IMMATURE GRANULOCYTE (%) 1.2 % (0.0-0.7); LYMPHOCYTE (%) 7.3 % (15-42); LYMPHOCYTE COUNT 0.3 K/uL (1.0-2.8); MCH 27.7 PG (29.0-34.0); MCHC 32.8 G/DL (30.0-36.0); MCV 84.4 FL (86-99); MONOCYTE (%) 12.3 % (3-12); MONOCYTE COUNT 0.5 K/uL (0-0.8); NEUTROPHIL (%) 77.6 % (45-76); NEUTROPHIL COUNT 3.3 K/uL (1.8-6.4); PLATELET COUNT 53 K/uL (156-360); RBC DIS.WIDTH-CV 14.9 % (11.8-14.6); RBC DIS.WIDTH-SD 46.1 % (39-53); RED BLOOD COUNT 3.65 M/uL (4.00-5.50); WHITE BLOOD COUNT 4.2 K/uL (4.1-10.2)
[2018-05-22 12:10] LABS: CHLORIDE 106 MEQ/L (99-109); CREATININE 0.4 MG/DL (0.6-1.3); GFR ESTIMATE (CALCULATED) > 59 mL/min/ (58.99-99999); GLUCOSE 120 mg/dL (70-99); POTASSIUM 4.1 MEQ/L (3.7-5.4); SODIUM 138 MEQ/L (136-147); UREA NITROGEN (BUN) 7 mg/dL (9-23)
[2018-05-22 13:12] VITALS: BP 103/68
[2018-05-22 15:12] VITALS: BP 108/68
[2018-05-22 23:46] VITALS: BP 113/67
[2018-05-23 07:29] VITALS: BP 111/69
[2018-05-23 16:23] VITALS: BP 117/72
[2018-05-24 00:10] VITALS: BP 108/72
[2018-05-24 06:18] LABS: BASOPHIL (%) 0.3 % (0-1); EOSINOPHIL (%) 1.9 % (0-5); EOSINOPHIL COUNT 0.1 K/uL (0-0.3); HEMATOCRIT 31.2 % (38.0-50.0); LYMPHOCYTE (%) 10.1 % (15-42); LYMPHOCYTE COUNT 0.3 K/uL (1.0-2.8); MCH 27.1 PG (29.0-34.0); MCHC 32.1 G/DL (30.0-36.0); MCV 84.6 FL (86-99); MONOCYTE (%) 13.3 % (3-12); MONOCYTE COUNT 0.4 K/uL (0-0.8); NEUTROPHIL (%) 73.4 % (45-76); NEUTROPHIL COUNT 2.3 K/uL (1.8-6.4); RBC DIS.WIDTH-CV 15.1 % (11.8-14.6); RBC DIS.WIDTH-SD 46.3 % (39-53); RED BLOOD COUNT 3.69 M/uL (4.00-5.50); WHITE BLOOD COUNT 3.1 K/uL (4.1-10.2)
[2018-05-24 06:34] LABS: IMM.PLATELET FRACTION 2.3 (1-7); PLATELET COUNT 50 K/uL (156-360)
[2018-05-24 06:41] LABS: ALBUMIN 2.8 G/DL (3.2-4.8); ALKALINE PHOSPHATASE 262 IU/L (3-129); ALT (GPT) 21 IU/L (3-49); AST (GOT) 28 IU/L (2-34); CHLORIDE 104 MEQ/L (99-109); CREATININE 0.4 MG/DL (0.6-1.3); GFR ESTIMATE (CALCULATED) > 59 mL/min/ (58.99-99999); GLUCOSE 111 mg/dL (70-99); SODIUM 140 MEQ/L (136-147); TOTAL BILIRUBIN 1.1 MG/DL (0.0-1.0); TOTAL PROTEIN 4.9 G/DL (6.4-8.3); UREA NITROGEN (BUN) 7 mg/dL (9-23)
[2018-05-24 07:40] VITALS: BP 119/75
[2018-05-24 16:15] VITALS: BP 112/78
[2018-05-24 23:45] VITALS: BP 105/68
[2018-05-25 07:20] VITALS: BP 123/77
[2018-05-25 11:11] LABS: HEMATOCRIT 31.9 % (38.0-50.0); HEMOGLOBIN 10.3 G/DL (12.5-16.6); MCH 27.8 PG (29.0-34.0); MCHC 32.3 G/DL (30.0-36.0); MCV 86.2 FL (86-99); PLATELET COUNT 52 K/uL (156-360); RBC DIS.WIDTH-CV 15.4 % (11.8-14.6); RBC DIS.WIDTH-SD 48.7 % (39-53)
[2018-05-25 11:18] LABS: INTER. NORMALIZED RATIO 1.4
[2018-05-25 11:25] LABS: PTT 90.3 SEC (25-37)
[2018-05-25 11:36] LABS: CHLORIDE 102 MEQ/L (99-109); CREATININE 0.6 MG/DL (0.6-1.3); GFR ESTIMATE (CALCULATED) > 59 mL/min/ (58.99-99999); GLUCOSE 163 mg/dL (70-99); POTASSIUM 4.7 MEQ/L (3.7-5.4); SODIUM 137 MEQ/L (136-147); UREA NITROGEN (BUN) 9 mg/dL (9-23)
[2018-05-25 15:15] VITALS: BP 107/65
[2018-05-26 00:01] VITALS: BP 108/69
[2018-05-26 07:20] VITALS: BP 101/65
[2018-05-26 15:00] VITALS: BP 100/55
[2018-05-26] MEDS ORDERED: Tylenol Extra Streng PO (16:44)
[2018-05-26] MEDS ORDERED: FAMOTIDINE20 MG PO (16:45)
[2018-05-26 17:57] LABS: BASOPHIL (%) 0.1 % (0-1); EOSINOPHIL (%) 0.4 % (0-5); HEMATOCRIT 32.3 % (38.0-50.0); HEMOGLOBIN 10.4 G/DL (12.5-16.6); IMMATURE GRANULOCYTE (%) 0.6 % (0.0-0.7); LYMPHOCYTE (%) 5.3 % (15-42); LYMPHOCYTE COUNT 0.4 K/uL (1.0-2.8); MCH 27.1 PG (29.0-34.0); MCHC 32.2 G/DL (30.0-36.0); MCV 84.1 FL (86-99); MONOCYTE (%) 10.1 % (3-12); MONOCYTE COUNT 0.8 K/uL (0-0.8); NEUTROPHIL (%) 83.5 % (45-76); NEUTROPHIL COUNT 6.5 K/uL (1.8-6.4); PLATELET COUNT 62 K/uL (156-360); RBC DIS.WIDTH-CV 15.2 % (11.8-14.6); RBC DIS.WIDTH-SD 46.1 % (39-53); RED BLOOD COUNT 3.84 M/uL (4.00-5.50); WHITE BLOOD COUNT 7.8 K/uL (4.1-10.2)
[2018-05-26 18:19] LABS: CHLORIDE 99 MEQ/L (99-109); CREATININE 0.5 MG/DL (0.6-1.3); GFR ESTIMATE (CALCULATED) > 59 mL/min/ (58.99-99999); GLUCOSE 156 mg/dL (70-99); POTASSIUM 4.6 MEQ/L (3.7-5.4); SODIUM 135 MEQ/L (136-147); UREA NITROGEN (BUN) 10 mg/dL (9-23)
[2018-05-26 20:00] LABS: APPEARANCE CLOUDY ((CLEAR)); BILIRUBIN NEGATIVE; BLOOD LARGE; GLUCOSE (STRIP) NEGATIVE; KETONES NEGATIVE; LEUKOCYTES MODERATE; NITRITE NEGATIVE; PROTEIN (STRIP) 100; SPECIFIC GRAVITY 1.024 (1.000-1.030); UROBILINOGEN 0.2 MG/DL (0.2-1.0)
[2018-05-26 21:44] LABS: COLOR RED ((YELLOW))
[2018-05-26 21:45] LABS: RED BLOOD CELLS TNTC /HPF (0-5)
[2018-05-26 21:46] LABS: EPITHELIAL CELLS RARE /HPF; WHITE BLOOD CELLS 40-50 /HPF (0-5)
[2018-05-26 21:48] LABS: MUCUS 1+ /LPF
[2018-05-26 23:23] VITALS: BP 123/77
[2018-05-27 07:25] VITALS: BP 123/76
[2018-05-27 10:50] LABS: BASOPHIL (%) 0.1 % (0-1); EOSINOPHIL (%) 0.6 % (0-5); HEMATOCRIT 32.5 % (38.0-50.0); HEMOGLOBIN 10.5 G/DL (12.5-16.6); IMMATURE GRANULOCYTE (%) 1.3 % (0.0-0.7); LYMPHOCYTE (%) 3.9 % (15-42); LYMPHOCYTE COUNT 0.3 K/uL (1.0-2.8); MCH 27.2 PG (29.0-34.0); MCHC 32.3 G/DL (30.0-36.0); MCV 84.2 FL (86-99); MONOCYTE (%) 12.8 % (3-12); MONOCYTE COUNT 0.9 K/uL (0-0.8); NEUTROPHIL (%) 81.3 % (45-76); NEUTROPHIL COUNT 5.7 K/uL (1.8-6.4); PLATELET COUNT 63 K/uL (156-360); RBC DIS.WIDTH-CV 15.4 % (11.8-14.6); RBC DIS.WIDTH-SD 46.8 % (39-53); RED BLOOD COUNT 3.86 M/uL (4.00-5.50)
[2018-05-27 11:12] LABS: CHLORIDE 101 MEQ/L (99-109); CREATININE 0.5 MG/DL (0.6-1.3); GFR ESTIMATE (CALCULATED) > 59 mL/min/ (58.99-99999); GLUCOSE 162 mg/dL (70-99); POTASSIUM 4.5 MEQ/L (3.7-5.4); SODIUM 135 MEQ/L (136-147); UREA NITROGEN (BUN) 8 mg/dL (9-23)
[2018-05-27 13:14] LABS: APPEARANCE CLOUDY ((CLEAR)); BILIRUBIN NEGATIVE; BLOOD LARGE; COLOR AMBER ((YELLOW)); GLUCOSE (STRIP) NEGATIVE; KETONES NEGATIVE; LEUKOCYTES MODERATE; NITRITE NEGATIVE; PROTEIN (STRIP) 100; SPECIFIC GRAVITY 1.019 (1.000-1.030)
[2018-05-27 13:39] LABS: BACTERIA 1+ /HPF; EPITHELIAL CELLS NONE SEEN /HPF; MUCUS 4+ /LPF; RED BLOOD CELLS TNTC /HPF (0-5); WHITE BLOOD CELLS TNTC /HPF (0-5)
[2018-05-27 15:25] VITALS: BP 110/66
[2018-05-27 23:01] VITALS: BP 125/73
[2018-05-28 07:11] VITALS: BP 111/73
[2018-05-28 16:19] VITALS: BP 109/75
[2018-05-28 16:35] LABS: HEMATOCRIT 34.4 % (38.0-50.0); HEMOGLOBIN 11.1 G/DL (12.5-16.6); MCH 27.1 PG (29.0-34.0); MCHC 32.3 G/DL (30.0-36.0); MCV 84.1 FL (86-99); RBC DIS.WIDTH-CV 15.4 % (11.8-14.6); RBC DIS.WIDTH-SD 46.8 % (39-53); RED BLOOD COUNT 4.09 M/uL (4.00-5.50); WHITE BLOOD COUNT 7.2 K/uL (4.1-10.2)
[2018-05-28 16:39] LABS: PLATELET COUNT 104 K/uL (156-360)
[2018-05-28 16:48] LABS: INTER. NORMALIZED RATIO 1.3
[2018-05-28 16:56] LABS: PTT 30.1 SEC (25-37)
[2018-05-28 17:04] LABS: ALBUMIN 2.7 G/DL (3.2-4.8); ALKALINE PHOSPHATASE 276 IU/L (3-129); CHLORIDE 101 MEQ/L (99-109); CREATININE 0.5 MG/DL (0.6-1.3); GFR ESTIMATE (CALCULATED) > 59 mL/min/ (58.99-99999); GLUCOSE 146 mg/dL (70-99); POTASSIUM 4.5 MEQ/L (3.7-5.4); SODIUM 137 MEQ/L (136-147); TOTAL PROTEIN 5.5 G/DL (6.4-8.3); UREA NITROGEN (BUN) 10 mg/dL (9-23)
[2018-05-28 17:06] LABS: ALT (GPT) 44 IU/L (3-49); AST (GOT) 50 IU/L (2-34); TOTAL BILIRUBIN 1.8 MG/DL (0.0-1.0)
[2018-05-29 00:29] VITALS: BP 112/68
[2018-05-29 07:45] VITALS: BP 113/79
[2018-05-29] MEDS ORDERED: KRISTALOSE10 GM PO (13:53)
[2018-05-29] MEDS ORDERED: BACTRIM,SEPT1 TABLET PO (13:54)
[2018-05-29 17:25] VITALS: BP 120/81
[2018-05-29 23:25] VITALS: BP 127/76
[2018-05-30 07:20] VITALS: BP 113/71
== END 2018-05-30 15:56 | disposition hospice, home (50) | DRG 981 ==
LOC: EME 18:57 → 5EAST 23:18 → EDOF 23:18 → ENRESERV 23:20 → 5EAST 05-14 00:51
PROVIDERS: Emergency Medicine; Family Medicine Sports Medicine; Physician Assistant Surgical; Surgery
DX: N32.1 Vesicointestinal fistula (principal); C19 Malignant neoplasm of rectosigmoid junction; C78.7 Secondary malignant neoplasm of liver and intrahepatic bile duct; C78.00 Secondary malignant neoplasm of unspecified lung; N39.0 Urinary tract infection, site not specified; B96.89 Other specified bacterial agents as the cause of diseases classified elsewhere; D61.1 Drug-induced aplastic anemia; D69.59 Other secondary thrombocytopenia; T45.1X5A Adverse effect of antineoplastic and immunosuppressive drugs, initial encounter; D62 Acute posthemorrhagic anemia; R18.8 Other ascites; D72.819 Decreased white blood cell count, unspecified; G89.3 Neoplasm related pain (acute) (chronic); R00.0 Tachycardia, unspecified; G89.18 Other acute postprocedural pain; R63.4 Abnormal weight loss; R63.0 Anorexia; R53.1 Weakness; R35.0 Frequency of micturition; I10 Essential (primary) hypertension; J44.9 Chronic obstructive pulmonary disease, unspecified; K21.9 Gastro-esophageal reflux disease without esophagitis; D63.8 Anemia in other chronic diseases classified elsewhere; K59.00 Constipation, unspecified; M54.5 Low back pain; F41.1 Generalized anxiety disorder; F32.9 Major depressive disorder, single episode, unspecified; Z87.891 Personal history of nicotine dependence; Z92.3 Personal history of irradiation; Z92.21 Personal history of antineoplastic chemotherapy; Z79.899 Other long term (current) drug therapy; Z79.891 Long term (current) use of opiate analgesic
CPT/HCPCS: 49083; 71045; 71046; 76000; 80048; 80053; 80076; 80202; 81003; 82140; 82607; 82746; 83605; 83690; 85025; 85027; 85610; 85730; 86850; 86900; 86901; 86920; 87040; 87076; 87077; 87086; 87106; 87185; 87186; 87801; 99281; 99285; J0330; J0692; J1170; J2185; J2270; J2405; J2543; J2710; J2997; J3010; J3370; J7030; J7040; J7050; J7120; J7643; P9016; P9035; P9045; S0074

== ENCOUNTER → 2018-06-05 | Outpatient (CLI) | payer BC ==
[~2018-06-05] MED LIST changes: +ALBUTEROL SULFATE IH; +BACTRIM,SEPT1 TABLET PO; +CEPHALEXIN500 M1 PO; +DILAUDID4 MG PO; +FAMOTIDINE20 MG PO; +FENTANYL1 EAC3 TD; +Tylenol Extra Streng PO; +ZOFRAN8 MG PO; +albuterol sulfate
== END | disposition home or self-care (01) ==
LOC: RAD 12:57
PROC: 0W9G3ZZ Drainage of Peritoneal Cavity, Percutaneous Approach (ICD-10-PCS; principal; 2018-06-05)
DX: R18.8 Other ascites (principal); C18.7 Malignant neoplasm of sigmoid colon; C78.7 Secondary malignant neoplasm of liver and intrahepatic bile duct; C78.00 Secondary malignant neoplasm of unspecified lung
CPT/HCPCS: 49083